=== PATIENT | male | born 1960 | race Caucasian/White ===

== ENCOUNTER 2021-04-01 15:11 | Inpatient (IN) | payer OTHER ==
[~2021-04-01] VITALS: Ht 182.9 cm; Wt 127.0 kg
[2021-04-01 16:15] LABS: HEMOGLOBIN 14.4 gm/dl (14.0-17.5); RED BLOOD COUNT 5.42 M/UL (4.20-5.50); WHITE BLOOD COUNT 6.3 K/UL (4.5-11.0)
[2021-04-01 17:30] LABS: BUN/CREATININE RATIO 15 (0-10)
[2021-04-01] MEDS ORDERED: ZESTRIL 40 MG T40 MG PO (22:20)
[2021-04-01] MEDS ORDERED: LONITEN TAB 1010 MG PO (22:21)
[2021-04-01] MEDS ORDERED: LASIX40 MG PO (22:21)
[2021-04-01] MEDS ORDERED: ASPIRIN81 MG PO (22:21)
[2021-04-01] MEDS ORDERED: NEURONTIN600 MG PO (22:21)
[2021-04-01] MEDS ORDERED: SUBOXONE 8 MG-1 EACH PO (22:22)
[2021-04-02 07:12] LABS: HEMOGLOBIN 15.5 gm/dl (14.0-17.5); RED BLOOD COUNT 5.59 M/UL (4.20-5.50); WHITE BLOOD COUNT 5.5 K/UL (4.5-11.0)
[2021-04-02 07:37] LABS: BUN/CREATININE RATIO 17 (0-10)
[2021-04-02] MEDS ORDERED: NORVASC10 MG PO (22:21)
[2021-04-03 07:59] LABS: HEMOGLOBIN 14.7 gm/dl (14.0-17.5); RED BLOOD COUNT 5.57 M/UL (4.20-5.50)
[2021-04-03 08:02] LABS: WHITE BLOOD COUNT 8.4 K/UL (4.5-11.0)
[2021-04-03 17:45] LABS: BUN/CREATININE RATIO 26 (0-10)
--- NOTE | 2021-04-04 02:25 | NUR ---
PHARMACY MADE AWARE THAT REMDESIVIR WAS ADMINISTERED 3.5 HOURS LATE.PHARMACIST WES STATED NO NEED TO RE-TIME FUTURE ADMINISTRATIONS. [id number]
[2021-04-04 04:41] LABS: HEMOGLOBIN 14.1 gm/dl (14.0-17.5); RED BLOOD COUNT 5.1 M/UL (4.20-5.50); WHITE BLOOD COUNT 8.1 K/UL (4.5-11.0)
[2021-04-04 05:09] LABS: BUN/CREATININE RATIO 24 (0-10)
[2021-04-05 07:05] LABS: BUN/CREATININE RATIO 20 (0-10)
[2021-04-05 07:09] LABS: HEMOGLOBIN 13.8 gm/dl (14.0-17.5); RED BLOOD COUNT 5.25 M/UL (4.20-5.50); WHITE BLOOD COUNT 6.5 K/UL (4.5-11.0)
[2021-04-06 03:15] LABS: HEMOGLOBIN 13.8 gm/dl (14.0-17.5); RED BLOOD COUNT 5.08 M/UL (4.20-5.50)
[2021-04-06 03:18] LABS: WHITE BLOOD COUNT 4.4 K/UL (4.5-11.0)
[2021-04-06 03:38] LABS: BUN/CREATININE RATIO 19 (0-10)
[2021-04-06] MEDS ORDERED: DECADRON6 MG PO (12:25)
== END 2021-04-06 13:49 | disposition home or self-care (01) | DRG 177 ==
LOC: ER1 15:11 → CDU 18:06 → M/S 18:06
PROVIDERS: Internal Medicine; Physician Assistant; ADMIT Internal Medicine
PROC: XW033E5 Introduction of Remdesivir Anti-infective into Peripheral Vein, Percutaneous Approach, New Technology Group 5 (ICD-10-PCS; principal; 2021-04-01)
PROC: 3E0333Z Introduction of Anti-inflammatory into Peripheral Vein, Percutaneous Approach (ICD-10-PCS; 2021-04-01)
PROC: 5A09457 Assistance with Respiratory Ventilation, 24-96 Consecutive Hours, Continuous Positive Airway Pressure (ICD-10-PCS; 2021-04-01)
PROC: 8E0ZXY6 Isolation (ICD-10-PCS; 2021-04-01)
DX: U07.1 COVID-19 (principal); J12.82 Pneumonia due to coronavirus disease 2019; J96.22 Acute and chronic respiratory failure with hypercapnia; J96.21 Acute and chronic respiratory failure with hypoxia; J44.0 Chronic obstructive pulmonary disease with (acute) lower respiratory infection; E87.1 Hypo-osmolality and hyponatremia; J44.1 Chronic obstructive pulmonary disease with (acute) exacerbation; E11.65 Type 2 diabetes mellitus with hyperglycemia; I11.0 Hypertensive heart disease with heart failure; I50.9 Heart failure, unspecified; G89.29 Other chronic pain; M54.9 Dorsalgia, unspecified; Z99.81 Dependence on supplemental oxygen; Z79.82 Long term (current) use of aspirin; Z87.891 Personal history of nicotine dependence; Z79.899 Other long term (current) drug therapy
CPT/HCPCS: 36415; 36600; 71045; 80053; 82550; 82553; 82728; 82803; 82947; 82962; 83036; 83605; 83615; 83735; 83874; 83880; 84484; 85025; 85027; 85379; 86140; 87040; 93005; 94640; 94664; 94760; 96374; 96375; 99285; J0696; J1100; J1650; J7030; U0002